=== PATIENT | male | born 1970 | race Caucasian/White ===

== ENCOUNTER 2019-07-09 09:00 | Outpatient (RCR) | payer BC, SELFPAY ==
--- NOTE | 2019-03-26 15:12 | HP.PTEVAL ---
Patient's Visit Information ZOFIA ROMEO is a 49 year old M referred to Physical Therapy by Pascual Mercado MD with a diagnosis of R RCR Bicep Repair 8... Date of Evaluation: 03/26/19 Physical Therapist: Alberto Bernal, PT, OSWALDO, SCS, CSCS - Visit Plan Frequency: 1x/Week Duration: 3 Months Plan: 1xweek for 6 weeks phase 1 then phase 2 for 6 weeks then phase 3 6 weeks. Instructed in a phase 1 program 2x20 twice daily. to try and help with ext rotation shd flexion. Maintain the precautions of 70 shd flxion and 25 ext rotation - Subjective Findings: Mrs Romeo is a pleasant 49 yo who was referred to our care by Dr Mercado with a diagnosis of Right Rotator Cuff Repair and Bicep tenodesis. Mr Romeo said he began to experience right shoulder pain about 3-4 months ago after removing some trees. 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 - Pain Right Shoulder Pain Intensity (Out of 10): 1 Pain Intensity Range: 1, 7 Comment: Sitting he is fine - Objective Incision is healing well no seepage or drainage. Steri strips were removed and no stiches. Neurological intact, MMT deferred secondary to the healing process. shd flexion 70. Shd Abd 70. Ext rotation 25. Int deferred - Goals Goal 1:: Understand the healing process and phases of rehab Goal Time Frame: 1 Week Goal 2:: Improve ROM 10% within 2 weeks. Maintain precautions Goal Time Frame: 2 Weeks Goal 3:: Progress throught phases and strengtheing as appropriate. Goal Time Frame: 8-12 Weeks - Rehabilitation Potential Physical Therapy Diagnosis: R RCR Bicep Repair Rehabilitation Potential: Good - Anticipated Interventions Patient/Client Instruction: Educate patient on: Condition, Plan of Care, Risk Factors For the Purpose of:: To decrease pain, To decrease swelling/inflammation, To increase ROM, To improve ability to perform ADL's Therapeutic Exercise to Include: Strength training, Endurance training, Coordination, Agility training For the Purpose of:: To decrease pain, To decrease swelling/inflammation, To increase ROM, To improve muscle performance and motor function, To improve ability to perform ADL's Manual Therapy Techniques to Include: Massage, Mobilization, Passive ROM For the Purpose of:: To decrease pain, To decrease swelling/inflammation, To increase ROM, To improve muscle performance and motor function, To improve ability to perform ADL's TENS: Yes Thank you for the opportunity to evaluate your patient. For Medicare and Medicare HMO plans, please review the plan of care and approve it. It will need to be FAXED BACK to us at [phone] for Medicare purposes. For Medicare only, by signing this I certify the plan of care. Please let me know if there are questions or concerns regarding this plan of care. Physician Signature: Date:
--- NOTE | 2019-04-16 15:36 | HP.PTEVAL_ITS ---
Patient's Visit Information ZOFIA ROMEO is a 49 year old M referred to Physical Therapy by Pascual Mercado MD with a diagnosis of R RCR Bicep Repair 03.10.19. Date of Evaluation: 03/26/19 Physical Therapist: Alberto Bernal, PT, OSWALDO, SCS, CSCS - Visit Plan Frequency: 1x/Week Duration: 3 Months Plan: f/u 04.18.19 - Subjective Findings: Mrs Romeo is a pleasant 49 yo who was referred to our care by Dr Mercado with a diagnosis of Right Rotator Cuff Repair and Bicep tenodesis. Mr Romeo said he began to experience right shoulder pain about 3-4 months ago after removing some trees. 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 - Pain Right Shoulder Pain Intensity (Out of 10): 2 Pain Intensity Range: 1, 7 Comment: I had to drive in the car for 7-8 hours - Objective Incision is healing well no seepage or drainage. Steri strips were removed and no stiches. Neurological intact, MMT deferred secondary to the healing process. shd flexion 70. Shd Abd 70. Ext rotation 25. Int deferred - Goals Goal 1:: Understand the healing process and phases of rehab Goal Time Frame: 1 Week Goal 2:: Improve ROM 10% within 2 weeks. Maintain precautions Goal Time Frame: 2 Weeks Goal 3:: Progress throught phases and strengtheing as appropriate. Goal Time Frame: 8-12 Weeks - Rehabilitation Potential Physical Therapy Diagnosis: R RCR Bicep Repair Rehabilitation Potential: Good - Anticipated Interventions Patient/Client Instruction: Educate patient on: Condition, Plan of Care, Risk Factors For the Purpose of:: To decrease pain, To decrease swelling/inflammation, To increase ROM, To improve ability to perform ADL's Therapeutic Exercise to Include: Strength training, Endurance training, Coordination, Agility training For the Purpose of:: To decrease pain, To decrease swelling/inflammation, To increase ROM, To improve muscle performance and motor function, To improve ability to perform ADL's Manual Therapy Techniques to Include: Massage, Mobilization, Passive ROM For the Purpose of:: To decrease pain, To decrease swelling/inflammation, To increase ROM, To improve muscle performance and motor function, To improve ability to perform ADL's TENS: Yes Thank you for the opportunity to evaluate your patient. For Medicare and Medicare HMO plans, please review the plan of care and approve it. It will need to be FAXED BACK to us at [phone] for Medicare purposes. For Medicare only, by signing this I certify the plan of care. Please let me know if there are questions or concerns regarding this plan of care. Physician Signature: Date:
== END 2019-07-09 19:00 | disposition home or self-care (01) ==
LOC: PT 09:00
PROVIDERS: Family Provider Internal Medicine; PCP Internal Medicine; Referring Provider Orthopaedic Surgery; Visit Provider Orthopaedic Surgery
DX: M75.101 Unspecified rotator cuff tear or rupture of right shoulder, not specified as traumatic (principal); S46.211D Strain of muscle, fascia and tendon of other parts of biceps, right arm, subsequent encounter
CPT/HCPCS: 97014; 97035; 97110; 97140; 97162; G0283